=== PATIENT | male | born 1965 | race African-American/Black ===

== ENCOUNTER 2021-09-12 14:56 | Emergency (ER) | payer MEDICAID ==
[~2021-09-12] VITALS: Ht 177.8 cm; Wt 69.3 kg
[2021-09-12] MEDS ORDERED: OMNI-PAC300 MG PO (17:15)
[2021-09-12 17:34] VITALS: BP 142/82
== END 2021-09-12 17:34 | disposition home or self-care (01) ==
LOC: ED 14:56
DX: S61.214A Laceration without foreign body of right ring finger without damage to nail, initial encounter (principal); E11.9 Type 2 diabetes mellitus without complications; W20.8XXA Other cause of strike by thrown, projected or falling object, initial encounter

== ENCOUNTER 2021-09-19 09:53 | Emergency (ER) | payer MEDICAID ==
[~2021-09-19] VITALS: Ht 177.8 cm; Wt 75.0 kg
[~2021-09-19 09:53] MED LIST: OMNI-PAC300 MG PO
[2021-09-19 10:28] VITALS: BP 122/69
== END 2021-09-19 10:30 | disposition home or self-care (01) ==
LOC: ED 09:53
DX: S61.411D Laceration without foreign body of right hand, subsequent encounter (principal); E11.9 Type 2 diabetes mellitus without complications; X58.XXXD Exposure to other specified factors, subsequent encounter

== ENCOUNTER 2024-10-06 19:54 | Emergency (ER) | payer OTHER ==
[~2024-10-06] VITALS: Ht 177.8 cm; Wt 70.0 kg
[2024-10-06] VITALS (8 sets, daily range): BP systolic 101–113; BP diastolic 62–74
[2024-10-06] MEDS ORDERED: GLUCAGON HCL (Rdna) 1 MG VIAL IV ONE ×2 (20:50→22:20)
[2024-10-06] MEDS ORDERED: NITROGLYCERIN 0.4 MG/TAB SL ONE (20:55)
[2024-10-06] MEDS ORDERED: SODIUM CHLORIDE 0.9% 1,000 ML IV ONE (22:50)
[2024-10-07 00:35] VITALS: BP 111/74
== END 2024-10-07 00:35 | disposition short-term general hospital (02) ==
LOC: ED 19:54
DX: T18.128A Food in esophagus causing other injury, initial encounter (principal); E11.9 Type 2 diabetes mellitus without complications; W44.F3XA Food entering into or through a natural orifice, initial encounter
CPT/HCPCS: J1610